=== PATIENT | female | born 1980 | race Caucasian/White ===

== ENCOUNTER 2017-09-09 07:28 | Emergency (ER) | payer OTHER ==
[~2017-09-09] VITALS: Ht 157.5 cm; Wt 68.0 kg
[~2017-09-09 07:28] MED LIST: PRED20 PO; TRAM50 PO; ZOVI800T13 PO
[2017-09-09 07:32] VITALS: BP 117/72; PULSE 81; RESP 18; TEMP 98.1; O2SAT 100
--- NOTE | 2017-09-09 07:54 | PD ---
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 Said there were clots and she has no idea how many pads she used but it was a lot of bleeding. Associated with some lower abdominal cramps. Also had yellow/green vaginal discharge day before. Denies any fever, chest pain, sob, n/v, dysuria, diarrhea, focal weakness or numbness. Pt also felt like something is stuck in her throat since yesterday but has no trouble eating dinner and is drinking and eating normally. She just want to mention it and unsure if it is related. PFSH Past Medical History Diminished Hearing: No Kidney Stones: Yes Reproductive: Yes (ENDOMETRIOSIS) Immunizations Current: Yes ?: Not LMP: AUGUST 2017 Menopausal: No : 5 Para: 3 Miscarriage: 2 Ectopic : Yes (2002) Ovarian Cysts: Yes (past hx) Dilation and Curettage (D&C): Yes ( 2002) Tubal Ligation: No Past Surgical History Section: Yes (X3) Hysterectomy: No Other Surgery: Yes (ADENOIDS REMOVED) Social History Alcohol Use: No Tobacco Use: Yes (1 PPD) Substance Use: No Allergies-Medications (Allergen,Severity, Reaction): Coded Allergies: No Known Allergies (Verified Adverse Reaction, Unknown, 09/09/17) Reported Meds & Prescriptions Reported Meds & Active Scripts Active No Active Prescriptions or Reported Medications Review of Systems Except as stated in HPI: all other systems reviewed are Neg Physical Exam Narrative GENERAL: 37yo F not in distress. SKIN: Focused skin assessment warm/dry. HEAD: Atraumatic. Normocephalic. EYES: Pupils equal and round. No scleral icterus. No injection or drainage. ENT:Throat: Uvula midline. Patent airway. NECK: Trachea midline. No JVD. CARDIOVASCULAR: Regular rate and rhythm. No murmur appreciated. RESPIRATORY: No accessory muscle use. Clear to auscultation. Breath sounds equal bilaterally. GASTROINTESTINAL: Abdomen soft, non-tender, nondistended. No rebound tenderness or guarding. PELVIC: +blood in vaginal vault. Small amount of blood clot removed. No lacerations. No CMT or adnexal tenderness bilaterally. No vaginal discharge. MUSCULOSKELETAL: No obvious deformities. No clubbing. No cyanosis. No edema. NEUROLOGICAL: Awake and alert. No obvious cranial nerve deficits. Motor grossly within normal limits in all extremities. Sensation equal. Normal speech. PSYCHIATRIC: Appropriate mood and affect; insight and judgment normal. Data Data Last Documented VS Vital Signs Date Time Temp Pulse Resp B/P (MAP) Pulse Ox O2 Delivery O2 Flow Rate FiO2 09/09/17 11:30 97.8 83 16 130/77 (94) 99 Orders Orders Complete Blood Count With Diff (09/09/17 07:48) Basic Metabolic Panel (Bmp) (09/09/17 07:48) Gc And Chlamydia Pcr (09/09/17 07:48) Wet Prep Profile (09/09/17 07:48) Urinalysis - C+S If Indicated (09/09/17 07:48) Ed Urine Pregnancytest Poc (09/09/17 07:48) Ed Discharge Order (09/09/17 11:22) Labs Laboratory Tests Test 09/09/17 08:00 09/09/17 08:30 White Blood Count 9.4 TH/MM3 Red Blood Count 4.22 MIL/MM3 Hemoglobin 13.2 GM/DL Hematocrit 38.4 % Mean Corpuscular Volume 91.1 FL Mean Corpuscular Hemoglobin 31.3 PG Mean Corpuscular Hemoglobin Concent 34.4 % Red Cell Distribution Width 13.8 % Platelet Count 256 TH/MM3 Mean Platelet Volume 9.7 FL Neutrophils (%) (Auto) 67.7 % Lymphocytes (%) (Auto) 22.0 % Monocytes (%) (Auto) 7.2 % Eosinophils (%) (Auto) 2.4 % Basophils (%) (Auto) 0.7 % Neutrophils # (Auto) 6.4 TH/MM3 Lymphocytes # (Auto) 2.1 TH/MM3 Monocytes # (Auto) 0.7 TH/MM3 Eosinophils # (Auto) 0.2 TH/MM3 Basophils # (Auto) 0.1 TH/MM3 CBC Comment DIFF FINAL Differential Comment Urine Color YELLOW Urine Turbidity CLEAR Urine pH 5.0 Urine Specific [place] 1.012 Urine Protein NEG mg/dL Urine Glucose (UA) NEG mg/dL Urine Ketones NEG mg/dL Urine Occult Blood MOD Urine Nitrite NEG Urine Bilirubin NEG Urine Urobilinogen LESS THAN 2.0 MG/DL Urine Leukocyte Esterase NEG Urine RBC /hpf Urine WBC LESS THAN 1 /hpf Urine Squamous Epithelial Cells <1 /hpf Urine Bacteria RARE /hpf Microscopic Urinalysis Comment CULT NOT INDICATED Blood Urea Nitrogen 10 MG/DL Creatinine 0.86 MG/DL Random Glucose 101 MG/DL Calcium Level 9.0 MG/DL Sodium Level 141 MEQ/L Potassium Level 4.3 MEQ/L Chloride Level 109 MEQ/L Carbon Dioxide Level 24.6 MEQ/L Anion Gap 7 MEQ/L Estimat Glomerular Filtration Rate 74 ML/MIN Clue Cells (Wet Prep) NONE SEEN Vaginal Trichomonas (Wet Prep) NONE SEEN Vaginal Yeast (Wet Prep) NONE SEEN Chlamydia trachomatis DNA (PCR) NOT DETECTED Neisseria gonorrhoeae DNA (PCR) NOT DETECTED MDM Medical Decision Making Medical Screen Exam Complete: Yes Emergency Medical Condition: Yes Differential Diagnosis vs. abnormal uterine bleeding Narrative Course 37yo F with abnormal uterine bleeding. Vital signs stable. Labs reviewed, no leukocytosis. H/H normal at 13.2/38.4. BMP unremarkable. Urine negative. UA showed WBC less than 1. Culture not indicated. Wet prep negative. Pt has no abdominal pain on exam. Will have patient follow up with [facility] as outpatient. Unknown about why she feels something in her throat but exam is normal and pt is eating and drinking normally. Pt can follow up with her primary care as outpatient. Return precautions given. Diagnosis Primary Impression: Abnormal uterine bleeding Referrals: Marie Child MD call for appointment Abnormal uterine bleeding Patient Instructions: General Instructions Departure Forms: Tests/Procedures Additional Instructions: Please follow up with bindery operator as soon as you can. Return to the ED if symptoms worsen. Med/Other Pt SpecificInfo: No Change to Meds Scripts No Active Prescriptions or Reported Meds Disposition: DISCHARGE HOME Condition: Stable Sugar Bailey DO Sep 09, 2017 07:54
[2017-09-09 08:21] LABS: AUTOMATED NEUTROPHIL # 6.4 TH/MM3 (1.8-7.7); BASOPHIL # 0.1 TH/MM3 (0-0.2); BASOPHIL % 0.7 % (0.0-2.0); EOSINOPHIL # 0.2 TH/MM3 (0-0.4); EOSINOPHIL % 2.4 % (0.0-4.0); HEMATOCRIT 38.4 % (35.0-46.0); HEMOGLOBIN 13.2 GM/DL (11.6-15.3); LYMPHOCYTE # 2.1 TH/MM3 (1.0-4.8); MEAN CELL VOLUME 91.1 FL (80.0-100.0); MEAN CORPUSCULAR HEMOGLOBIN 31.3 PG (27.0-34.0); MEAN CORPUSCULAR HGB CONC 34.4 % (32.0-36.0); MEAN PLATELET VOLUME 9.7 FL (7.0-11.0); MONO % 7.2 % (0.0-8.0); MONOCYTE # 0.7 TH/MM3 (0-0.9); NEUT % 67.7 % (16.0-70.0); PLATELET COUNT 256 TH/MM3 (150-450); RED BLOOD COUNT 4.22 MIL/MM3 (4.00-5.30); RED CELL DISTRIBUTION WIDTH 13.8 % (11.6-17.2); WHITE BLOOD COUNT 9.4 TH/MM3 (4.0-11.0)
[2017-09-09 08:27] LABS: BACTERIA, URINE RARE /hpf; BILIRUBIN, URINE NEG (NEG); BLOOD, URINE MOD (NEG); GLUCOSE,URINE NEG (NEG); KETONE, URINE NEG (NEG); NITRITE,URINE NEG (NEG); SQUAMOUS EPITHELIAL CELL URINE <1 /hpf (0-5); URINE COLOR YELLOW (YELLW/STRAW); URINE LEUKOCYTE ESTERASE NEG (NEG)
[2017-09-09 08:34] LABS: BICARBONATE 24.6 MEQ/L (21.0-32.0); CREATININE 0.86 MG/DL (0.50-1.00)
[2017-09-09 11:30] VITALS: BP 130/77; TEMP 97.8
== END 2017-09-09 11:30 | disposition home or self-care (01) ==
LOC: NEPE 07:28
DX: N93.9 Abnormal uterine and vaginal bleeding, unspecified (principal); F17.200 Nicotine dependence, unspecified, uncomplicated
CPT/HCPCS: 80048; 81001; 84703; 85025; 87210; 87491; 87591; 99284

== ENCOUNTER 2017-09-12 11:53 | Emergency (ER) | payer OTHER ==
[~2017-09-12] VITALS: Ht 157.5 cm; Wt 63.0 kg
[2017-09-12 11:56] VITALS: BP 116/57; PULSE 81; RESP 16; TEMP 98.4; O2SAT 99
--- NOTE | 2017-09-12 12:38 | PD ---
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 Patient states she has been bleeding a lot and passing large clots. She had gone to the emergency room at the [facility] days ago. Blood test was done and eventually she was discharged home. She was asked to follow up with [facility] and she called but the office was closed on Tuesday. When the bleeding continued she went to the [facility] the next day where an ultrasound was done. The ultrasound showed fibroids. Patient was given a different [facility] to follow up with over there. Patient has not followed with any [facility] yet and since the bleeding has continued she is here now. No history of syncopal episode. Vital signs were stable. Patient is not on any blood thinners. This is never happened to her before. PFSH Past Medical History Narrative Medical List of her past medical, surgical, social and family history is reviewed from the nursing note. Hx Anticoagulant Therapy: No Diminished Hearing: No Kidney Stones: Yes Reproductive: Yes (ENDOMETRIOSIS) Immunizations Current: Yes ?: Not Menopausal: No : 5 Para: 3 Miscarriage: 2 Ectopic : Yes (2002) Ovarian Cysts: Yes (past hx) Dilation and Curettage (D&C): Yes ( 2002) Tubal Ligation: No Past Surgical History Section: Yes (X3) Hysterectomy: No Other Surgery: Yes (ADENOIDS REMOVED) Social History Alcohol Use: No Tobacco Use: Yes (1 PPD) Substance Use: No (HX OF, PATIENT STATES "IM IN RECOVERY") Allergies-Medications (Allergen,Severity, Reaction): Coded Allergies: No Known Allergies (Verified Adverse Reaction, Unknown, 09/12/17) Comments No known drug allergies. Reported Meds & Prescriptions Reported Meds & Active Scripts Active Provera (Medroxyprogesterone Acetate) 10 Mg Tab 20 Mg PO DAILY 21 Days Start day 21 Provera (Medroxyprogesterone Acetate) 10 Mg Tab 20 Mg PO TID 7 Days Start day 21 Tranexamic Acid 650 Mg Tab 1,300 Mg PO TID 5 Days Narrative Medication List of her home medications reviewed from the nursing note. Review of Systems Except as stated in HPI: all other systems reviewed are Neg Genitourinary: Positive: Menorrhagia Physical Exam Narrative GENERAL: Awake, alert, mild distress SKIN: Focused skin assessment warm/dry. HEAD: Atraumatic. Normocephalic. EYES: Pupils equal and round. No scleral icterus. No injection or drainage. ENT: No nasal bleeding or discharge. Mucous membranes pink and moist. NECK: Trachea midline. No JVD. CARDIOVASCULAR: Regular rate and rhythm. No murmur appreciated. RESPIRATORY: No accessory muscle use. Clear to auscultation. Breath sounds equal bilaterally. GASTROINTESTINAL: Abdomen soft, non-tender, nondistended. Hepatic and splenic margins not palpable. MUSCULOSKELETAL: No obvious deformities. No clubbing. No cyanosis. No edema. NEUROLOGICAL: Awake and alert. No obvious cranial nerve deficits. Motor grossly within normal limits. Normal speech. PSYCHIATRIC: Appropriate mood and affect; insight and judgment normal. Data Data Last Documented VS Orders Orders Complete Blood Count With Diff (09/12/17 12:58) Type And Screen (09/12/17 12:58) Prothrombin Time / Inr (Pt) (09/12/17 12:58) Tranexamic Acid (Lysteda) (09/12/17 13:45) Ed Discharge Order (09/12/17 13:48) Medroxyprogesterone Acetate (Provera) (09/12/17 14:00) Labs Laboratory Tests Test 09/12/17 13:10 White Blood Count 8.4 TH/MM3 Red Blood Count 3.75 MIL/MM3 Hemoglobin 11.3 GM/DL Hematocrit 33.9 % Mean Corpuscular Volume 90.3 FL Mean Corpuscular Hemoglobin 30.1 PG Mean Corpuscular Hemoglobin Concent 33.4 % Red Cell Distribution Width 13.1 % Platelet Count 229 TH/MM3 Mean Platelet Volume 9.4 FL Neutrophils (%) (Auto) 61.7 % Lymphocytes (%) (Auto) 29.7 % Monocytes (%) (Auto) 6.2 % Eosinophils (%) (Auto) 1.7 % Basophils (%) (Auto) 0.7 % Neutrophils # (Auto) 5.2 TH/MM3 Lymphocytes # (Auto) 2.5 TH/MM3 Monocytes # (Auto) 0.5 TH/MM3 Eosinophils # (Auto) 0.1 TH/MM3 Basophils # (Auto) 0.1 TH/MM3 CBC Comment DIFF FINAL Differential Comment Prothrombin Time 10.0 SEC Prothromb Time International Ratio 1.0 RATIO MDM Medical Decision Making Medical Screen Exam Complete: Yes Emergency Medical Condition: Yes Medical Record Reviewed: Yes Differential Diagnosis Dysfunctional uterine bleeding Narrative Course 1:44 PM CBC shows a stable H&H. I discussed the case with Dr. Pool who is on- call for OB hospitalist. As per her patient can get the x-ray 1300 mg 3 times a day for 5 days which would be more effective. However if her insurance does not cover then she can get Provera 20 mg 3 times a day for 7 days followed by 20 mg once a day for 21 days. At this point I'm not sure if patient insurance will allow TXA. However I'll give her dose of takes a here and both prescriptions to go home with. I would recommend to take the TXA if the insurance covers. If not then she can get Provera filled. Patient will be discharged home. Procedures EKG Prior to Arrival: No Physician Communication Physician Communication Dr. Pool Diagnosis Primary Impression: Dysfunctional uterine bleeding Additional Impression: Menorrhagia Qualified Codes: N92.0 - Excessive and frequent menstruation with regular cycle Additional Instructions: Please follow-up with the MOTHER'S HELPER whose information was given to you last time. You have to prescriptions that she going home with. The prescription with TXA is preferable. However if her insurance does not cover that then please get the other insurance of Provera filled and take that. You should not be taking both medications. Med/Other Pt SpecificInfo: Prescription(s) given Scripts Medroxyprogesterone Acetate (Provera) 10 Mg Tab 20 MG PO DAILY for Uterine bleeding for 21 Days, #42 TAB 0 Refills Start day 21 Prov: Kike Meredith MD 09/12/17 Medroxyprogesterone Acetate (Provera) 10 Mg Tab 20 MG PO TID for Uterine bleeding for 7 Days, #5 TAB 0 Refills Start day 21 Prov: Kike Meredith MD 09/12/17 Tranexamic Acid (Tranexamic Acid) 650 Mg Tab 1300 MG PO TID for Control Heavy Menstruation for 5 Days, TAB 0 Refills Prov: Kike Meredith MD 09/12/17 Disposition: 01 DISCHARGE HOME Condition: Stable Kike Meredith MD Sep 12, 2017 12:38
[2017-09-12 13:26] LABS: AUTOMATED NEUTROPHIL # 5.2 TH/MM3 (1.8-7.7); BASOPHIL # 0.1 TH/MM3 (0-0.2); BASOPHIL % 0.7 % (0.0-2.0); EOSINOPHIL # 0.1 TH/MM3 (0-0.4); EOSINOPHIL % 1.7 % (0.0-4.0); HEMATOCRIT 33.9 % (35.0-46.0); HEMOGLOBIN 11.3 GM/DL (11.6-15.3); LYMPH % 29.7 % (9.0-44.0); LYMPHOCYTE # 2.5 TH/MM3 (1.0-4.8); MEAN CELL VOLUME 90.3 FL (80.0-100.0); MEAN CORPUSCULAR HEMOGLOBIN 30.1 PG (27.0-34.0); MEAN CORPUSCULAR HGB CONC 33.4 % (32.0-36.0); MEAN PLATELET VOLUME 9.4 FL (7.0-11.0); MONO % 6.2 % (0.0-8.0); MONOCYTE # 0.5 TH/MM3 (0-0.9); NEUT % 61.7 % (16.0-70.0); PLATELET COUNT 229 TH/MM3 (150-450); RED BLOOD COUNT 3.75 MIL/MM3 (4.00-5.30); RED CELL DISTRIBUTION WIDTH 13.1 % (11.6-17.2); WHITE BLOOD COUNT 8.4 TH/MM3 (4.0-11.0)
[2017-09-12] MEDS ORDERED: TRANEXAMIC ACID 650 MG TAB PO ONE (13:45)
[2017-09-12] MEDS ORDERED: medroxyPROGESTERone ACETATE 10 MG TAB PO ONE (13:45)
[2017-09-12] MEDS ORDERED: PROV10TA PO ×2 (13:48)
[2017-09-12] MEDS ORDERED: TRAN650T PO (13:48)
[2017-09-12 14:55] VITALS: BP 108/57; PULSE 80; RESP 12; O2SAT 98
== END 2017-09-12 15:00 | disposition home or self-care (01) ==
LOC: PHED 11:53
DX: N93.8 Other specified abnormal uterine and vaginal bleeding (principal); N92.0 Excessive and frequent menstruation with regular cycle; F17.200 Nicotine dependence, unspecified, uncomplicated; Z79.899 Other long term (current) drug therapy; Z87.442 Personal history of urinary calculi
CPT/HCPCS: 85025; 85610; 86850; 86900; 86901; 99283

== ENCOUNTER 2017-11-16 16:10 | Emergency (ER) | payer OTHER ==
[~2017-11-16] VITALS: Ht 157.5 cm; Wt 63.6 kg
[~2017-11-16 16:10] MED LIST changes: -PRED20 PO; +PROV10TA PO; -TRAM50 PO; +TRAN650T PO; -ZOVI800T13 PO
[2017-11-16 16:14] VITALS: BP 115/74; PULSE 67; RESP 18; TEMP 98.3; O2SAT 100
[2017-11-16] MEDS ORDERED: AZIT250T3 PO (17:06)
[2017-11-16] MEDS ORDERED: BENZ100 PO (17:07)
--- NOTE | 2017-11-16 17:07 | PD ---
HPI Chief Complaint: Cold / Flu Symptoms Time Seen by Provider: 16:39 Travel History International Travel<30 days: No Contact w/Intl Traveler<30days: No Traveled to known affect area: No History of Present Illness HPI This is a 37-year-old female here with productive cough and reported green sputum. She reports she has had a cough for 2 weeks. Over the last week the cough became productive. Subjective fevers. No chest pain or shortness of breath. Symptom severity is moderate. No aggravating or alleviating factors. No sick contacts or foreign travel. PFSH Past Medical History Medical History: Denies Significant Hx Hx Anticoagulant Therapy: No Diminished Hearing: No Kidney Stones: Yes Reproductive: Yes (ENDOMETRIOSIS) Immunizations Current: Yes Tetanus Vaccination: Unknown Influenza Vaccination: No ?: Not LMP: 11/11/17 Menopausal: No : 5 Para: 3 Miscarriage: 2 Ectopic : Yes (2002) Ovarian Cysts: Yes (past hx) Dilation and Curettage (D&C): Yes ( 2002) Tubal Ligation: No Past Surgical History Section: Yes (X3) Hysterectomy: No Other Surgery: Yes (ADENOIDS REMOVED) Social History Alcohol Use: No Tobacco Use: Yes (1 PPD) Substance Use: No (HX OF, PATIENT STATES "IM IN RECOVERY") Allergies-Medications (Allergen,Severity, Reaction): Coded Allergies: No Known Allergies (Verified Adverse Reaction, Unknown, 11/16/17) Reported Meds & Prescriptions Reported Meds & Active Scripts Active Provera (Medroxyprogesterone Acetate) 10 Mg Tab 20 Mg PO DAILY 21 Days Start day 21 Provera (Medroxyprogesterone Acetate) 10 Mg Tab 20 Mg PO TID 7 Days Start day 21 Review of Systems Except as stated in HPI: all other systems reviewed are Neg General / Constitutional: Positive: Fever Eyes: No: Visual changes HENT: No: Headaches Cardiovascular: No: Chest Pain or Discomfort Respiratory: Positive: Cough, No: Shortness of Breath Gastrointestinal: No: Abdominal Pain Genitourinary: No: Dysuria Physical Exam Narrative GENERAL: Alert and well-appearing 37-year-old female SKIN: Warm and dry. HEAD: Normocephalic. EYES: No injection or drainage. ENT: Mild pharyngeal erythema without tonsillar hypertrophy or exudate. NECK: Supple CARDIOVASCULAR: Regular rate and rhythm without murmurs, gallops, or rubs. RESPIRATORY: Breath sounds equal bilaterally. No accessory muscle use. GASTROINTESTINAL: Abdomen soft, non-tender, nondistended. MUSCULOSKELETAL: No cyanosis, or edema. BACK: Nontender without obvious deformity. No CVA tenderness. Data Data Last Documented VS Vital Signs Date Time Temp Pulse Resp B/P (MAP) Pulse Ox O2 Delivery O2 Flow Rate FiO2 11/16/17 16:14 98.3 67 18 115/74 (88) 100 MDM Medical Decision Making Medical Screen Exam Complete: Yes Emergency Medical Condition: Yes Differential Diagnosis Bronchitis, pneumonia, URI Narrative Course 37-year-old female here with bronchitis. She is nontoxic appearing. She will be treated with azithromycin. Diagnosis Primary Impression: Bronchitis Referrals: Primary Care Physician Additional Instructions: Medication as directed. Follow up with your primary doctor. Scripts Benzonatate (Tessalon Perles) 100 Mg Cap 200 MG PO TID Y for COUGH, #12 CAP 0 Refills Prov: Irma Galicia 11/16/17 Azithromycin (Azithromycin) 250 Mg Tab 250 MG PO DIRECTED for Infection, #6 TAB 0 Refills Take 2 tabs (500 mg) on day 1 then 1 tab daily x 4 days. Prov: Irma Galicia 11/16/17 Disposition: 01 DISCHARGE HOME Condition: Stable Irma Galicia November 16, 2017 17:07
== END 2017-11-16 17:47 | disposition home or self-care (01) ==
LOC: PHEFT 16:10
DX: J40 Bronchitis, not specified as acute or chronic (principal); F17.200 Nicotine dependence, unspecified, uncomplicated; Z79.899 Other long term (current) drug therapy; Z87.442 Personal history of urinary calculi
CPT/HCPCS: 99283